=== PATIENT | female | born 1940 | race Caucasian/White ===

== ENCOUNTER 2018-07-08 17:53 | Outpatient (REF) | payer MEDICARE, SELFPAY ==
[2018-07-08 22:25] LABS: TSH (W/Ref FT4) 2.48 uIU/mL (0.358-3.74)
[2018-07-08 22:38] LABS: Vitamin B12 > 2000 pg/mL (193-986)
[2018-07-11 14:28] LABS: Syphilis Serology (RPR) Negative (Negative)
== END 2018-07-08 18:13 ==
LOC: NCHCN 17:53
PROVIDERS: PCP Family Medicine; Visit Provider Family Medicine
DX: G31.84 Mild cognitive impairment of uncertain or unknown etiology (principal); I10 Essential (primary) hypertension
CPT/HCPCS: 82607; 84443; 86592

== ENCOUNTER 2019-02-07 15:41 | Outpatient (REF) | payer MEDICARE, SELFPAY ==
[2019-02-07 21:32] LABS: Hemoglobin A1C 6.4 % (4.5-6.2)
[2019-02-07 21:42] LABS: TSH (W/Ref FT4) 3.78 uIU/mL (0.36-3.74)
[2019-02-07 22:01] LABS: FREE T4 0.95 ng/dL (0.76-1.46)
== END 2019-02-07 16:01 ==
LOC: NCHCN 15:41
PROVIDERS: PCP Family Medicine; Visit Provider Family Medicine
DX: R73.03 Prediabetes (principal); R63.5 Abnormal weight gain
CPT/HCPCS: 83036; 84439; 84443

== ENCOUNTER 2019-04-13 13:13 | Outpatient (REF) | payer MEDICARE, SELFPAY ==
[2019-04-13 22:41] LABS: Anion Gap 8.4 mmol/L (3-11); BUN 19 mg/dL (7-18); CO2 31.6 mmol/L (21.0-32.0); CREATININE 1.11 mg/dL (0.55-1.02); Calcium 9.2 mg/dL (8.5-10.1); Chloride 102 mmol/L (98-107); Estimated GFR 47.42 (mL/min/1.73m2); Glucose 95 mg/dL (70-100); Magnesium 1.5 mg/dL (1.8-2.4); Potassium 3.8 mmol/L (3.5-5.1); Sodium 142 mmol/L (136-145)
== END 2019-04-13 13:33 ==
LOC: NCHCN 13:13
PROVIDERS: PCP Family Medicine; Visit Provider Family Medicine
DX: E87.6 Hypokalemia (principal); E83.42 Hypomagnesemia
CPT/HCPCS: 80048; 83735

== ENCOUNTER 2019-04-27 11:10 | Outpatient (REF) | payer MEDICARE, SELFPAY | END 2019-04-27 11:30 | LOC: NCHCN 11:10 | PROVIDERS: PCP Family Medicine; Visit Provider Family Medicine | DX: R82.90 Unspecified abnormal findings in urine (principal) | CPT/HCPCS: 87086 ==

== ENCOUNTER 2019-06-26 14:13 | Outpatient (REF) | payer MEDICARE, SELFPAY ==
[2019-06-26 21:43] LABS: Abs Immature Grans 0.02 k/cumm (0.0-0.09); Absolute Basophil Count 0.04 k/cumm (0.0-0.2); Absolute Eosinophil Count 0.27 k/cumm (0.0-0.7); Absolute Monocyte Count 0.87 k/cumm (0.11-0.7); Absolute Neutrophil Count 3.99 k/cumm (1.2-6.7); Basophils % 0.6; HCT 43.1 % (36.0-46.0); HGB 13.9 g/dL (12.0-15.5); Immature Grans % 0.3 %; Lymphocytes % 23.6; Mean Corp. HGB Concentration 32.3 g/dL (32.0-36.0); Mean Corpuscular Hemoglobin 28.7 pg (27.0-33.0); Mean Platelet Volume 11.5 fL (8.0-11.0); Monocytes % 12.8; Neutrophils % 58.7; Platelet Count 208 x1000/uL (130-400); RBC 4.84 m/cumm (4.00-5.20); RBC Distribution Width 15.9 % (11.7-14.6); White Blood Cell Count 6.79 k/cumm (4.4-10.8)
[2019-06-26 22:13] LABS: ALT 20 U/L (14-59); AST 22 U/L (15-37); Albumin 3.9 g/dL (3.4-5.0); Alkaline Phosphatase 104 U/L (46-116); Anion Gap 9.2 mmol/L (3-11); BUN 12 mg/dL (7-18); Bilirubin, Total 0.7 mg/dL (0.2-1.0); CO2 32.8 mmol/L (21.0-32.0); CREATININE 1.02 mg/dL (0.55-1.02); Calcium 9.5 mg/dL (8.5-10.1); Chloride 98 mmol/L (98-107); Estimated GFR 52.28 (mL/min/1.73m2); Glucose 101 mg/dL (74-106); Magnesium 1.4 mg/dL (1.8-2.4); Potassium 3.7 mmol/L (3.5-5.1); Sodium 140 mmol/L (136-145); Total Protein 7.4 g/dL (6.4-8.2)
== END 2019-06-26 14:33 ==
LOC: NCHCN 14:13
PROVIDERS: PCP Family Medicine; Visit Provider Nurse Practitioner Family
DX: E83.42 Hypomagnesemia (principal); R19.7 Diarrhea, unspecified
CPT/HCPCS: 80053; 83735; 85025

== ENCOUNTER 2019-07-11 21:45 | Outpatient (REF) | payer MEDICARE, SELFPAY ==
[2019-07-11 22:19] LABS: Calculated LDL 108 mg/dL (<100); Cholesterol 181 mg/dL (<200); HDL Cholesterol 59 mg/dL (40-60); Magnesium 1.2 mg/dL (1.8-2.4); Triglyceride 71 mg/dL (<150)
== END 2019-07-11 22:05 ==
LOC: NCHCN 21:45
PROVIDERS: PCP Family Medicine; Visit Provider Family Medicine
DX: R73.03 Prediabetes (principal); I10 Essential (primary) hypertension; E83.42 Hypomagnesemia
CPT/HCPCS: 80061; 83735

== ENCOUNTER 2019-09-08 14:21 | Outpatient (REF) | payer MEDICARE, SELFPAY ==
[2019-09-08 20:20] LABS: Hemoglobin A1C 6.3 % (3.8-5.6); Magnesium 1.7 mg/dL (1.8-2.4)
== END 2019-09-08 14:41 ==
LOC: NCHCN 14:21
PROVIDERS: PCP Family Medicine; Visit Provider Family Medicine
DX: R73.03 Prediabetes (principal); E83.42 Hypomagnesemia
CPT/HCPCS: 83036; 83735

== ENCOUNTER 2019-09-26 10:07 | Outpatient (REF) | payer MEDICARE, SELFPAY ==
[2019-09-26 20:42] LABS: Anion Gap 6.7 mmol/L (3-11); BUN 18 mg/dL (7-18); CO2 34.3 mmol/L (21.0-32.0); CREATININE 1.02 mg/dL (0.55-1.02); Calcium 9.1 mg/dL (8.5-10.1); Chloride 92 mmol/L (98-107); Estimated GFR 52.14 (mL/min/1.73m2); Glucose 166 mg/dL (74-106); Potassium 3.8 mmol/L (3.5-5.1); Sodium 133 mmol/L (136-145)
== END 2019-09-26 10:27 ==
LOC: NCHCN 10:07
PROVIDERS: PCP Family Medicine; Visit Provider Family Medicine
DX: E87.4 Mixed disorder of acid-base balance (principal)
CPT/HCPCS: 80048

== ENCOUNTER 2020-01-17 19:39 | Outpatient (REF) | payer MEDICARE, SELFPAY ==
[2020-01-17 19:52] LABS: BUN 17 mg/dL (7-18); Potassium 4.2 mmol/L (3.5-5.1)
[2020-01-17 21:12] LABS: Anion Gap 9.1 mmol/L (3-11); CO2 25.9 mmol/L (21.0-32.0); CREATININE 1.27 mg/dL (0.55-1.02); Chloride 95 mmol/L (98-107); Estimated GFR 40.49 (mL/min/1.73m2); Glucose 289 mg/dL (74-106); Sodium 130 mmol/L (136-145)
== END 2020-01-17 19:59 ==
LOC: NCHCN 19:39
PROVIDERS: PCP Family Medicine; Visit Provider Nurse Practitioner Family
DX: R63.1 Polydipsia (principal); E11.9 Type 2 diabetes mellitus without complications
CPT/HCPCS: 80048

== ENCOUNTER 2020-01-18 15:17 | Outpatient (REF) | payer MEDICARE, SELFPAY ==
[2020-01-18 21:09] LABS: Anion Gap 12.9 mmol/L (3-11); BUN 17 mg/dL (7-18); CO2 23.1 mmol/L (21.0-32.0); CREATININE 1.48 mg/dL (0.55-1.02); Calcium 8.8 mg/dL (8.5-10.1); Chloride 94 mmol/L (98-107); Estimated GFR 33.93 (mL/min/1.73m2); Glucose 253 mg/dL (74-106); Potassium 4.1 mmol/L (3.5-5.1); Sodium 130 mmol/L (136-145)
== END 2020-01-18 15:37 ==
LOC: NCHCN 15:17
PROVIDERS: PCP Family Medicine; Visit Provider Family Medicine
DX: R19.7 Diarrhea, unspecified (principal)
CPT/HCPCS: 80048; 87077; 87086; 87186

== ENCOUNTER 2020-01-22 14:19 | Outpatient (REF) | payer MEDICARE, SELFPAY ==
[2020-01-22 21:16] LABS: Anion Gap 10.1 mmol/L (3-11); BUN 13 mg/dL (7-18); CO2 25.9 mmol/L (21.0-32.0); Calcium 8.8 mg/dL (8.5-10.1); Chloride 98 mmol/L (98-107); Estimated GFR 39.41 (mL/min/1.73m2); Glucose 165 mg/dL (74-106); Magnesium 1.6 mg/dL (1.8-2.4); Potassium 4.6 mmol/L (3.5-5.1); Sodium 134 mmol/L (136-145)
== END 2020-01-22 14:39 ==
LOC: NCHCN 14:19
PROVIDERS: PCP Family Medicine; Visit Provider Family Medicine
DX: R94.4 Abnormal results of kidney function studies (principal); E83.42 Hypomagnesemia
CPT/HCPCS: 80048; 83735

== ENCOUNTER 2020-01-26 15:55 | Outpatient (REF) | payer MEDICARE, SELFPAY ==
[2020-01-26 22:46] LABS: Anion Gap 7.2 mmol/L (3-11); BUN 11 mg/dL (7-18); CO2 27.8 mmol/L (21.0-32.0); CREATININE 1.17 mg/dL (0.55-1.02); Chloride 99 mmol/L (98-107); Estimated GFR 44.51 (mL/min/1.73m2); Glucose 287 mg/dL (74-106); Potassium 4.4 mmol/L (3.5-5.1); Sodium 134 mmol/L (136-145)
== END 2020-01-26 16:15 ==
LOC: NCHCN 15:55
PROVIDERS: PCP Family Medicine; Visit Provider Family Medicine
DX: E11.9 Type 2 diabetes mellitus without complications (principal); E87.6 Hypokalemia
CPT/HCPCS: 80048

== ENCOUNTER 2020-03-08 19:07 | Outpatient (REF) | payer MEDICARE, OTHER, SELFPAY ==
[2020-03-08 21:39] LABS: Anion Gap 7.3 mmol/L (3-11); BUN 15 mg/dL (7-18); CO2 30.7 mmol/L (21.0-32.0); CREATININE 1.26 mg/dL (0.55-1.02); Calcium 9.4 mg/dL (8.5-10.1); Chloride 100 mmol/L (98-107); Estimated GFR 40.86 (mL/min/1.73m2); Glucose 202 mg/dL (74-106); Potassium 4.2 mmol/L (3.5-5.1); Sodium 138 mmol/L (136-145)
[2020-03-08 21:55] LABS: Hemoglobin A1C 9.4 % (<5.7)
== END 2020-03-08 19:27 ==
LOC: NCHCN 19:07
PROVIDERS: PCP Family Medicine; Visit Provider Family Medicine
DX: E11.9 Type 2 diabetes mellitus without complications (principal); I10 Essential (primary) hypertension; E83.42 Hypomagnesemia; E87.6 Hypokalemia
CPT/HCPCS: 80048; 83036

== ENCOUNTER 2020-09-10 12:52 | Outpatient (REF) | payer MEDICARE, OTHER, SELFPAY ==
[2020-09-10 13:59] LABS: COMMENT (LAB VIEW ONLY) 47.35 mg/dL
[2020-09-10 14:03] LABS: Microalb ug/mg Crea 611.2 ug/mg Cr
== END 2020-09-10 12:53 | disposition home or self-care (01) ==
LOC: NCHCN 12:52
PROVIDERS: PCP Family Medicine; Visit Provider Family Medicine
DX: E11.9 Type 2 diabetes mellitus without complications (principal)
CPT/HCPCS: 82043; 82570

== ENCOUNTER 2020-10-21 15:25 | Outpatient (REF) | payer MEDICARE, OTHER, SELFPAY ==
[2020-10-21 21:10] LABS: Anion Gap 8.9 mmol/L (3-11); BUN 17 mg/dL (7-18); CO2 30.1 mmol/L (21.0-32.0); CREATININE 0.8 mg/dL (0.55-1.02); Calcium 8.9 mg/dL (8.5-10.1); Chloride 103 mmol/L (98-107); Glucose 77 mg/dL (74-106); Potassium 4.2 mmol/L (3.5-5.1); Sodium 142 mmol/L (136-145)
== END 2020-10-21 15:26 | disposition home or self-care (01) ==
LOC: NCHCN 15:25
PROVIDERS: PCP Family Medicine; Visit Provider Nurse Practitioner Community Health
DX: N18.30 Chronic kidney disease, stage 3 unspecified (principal)
CPT/HCPCS: 80048

== ENCOUNTER 2020-10-25 14:26 | Outpatient (REF) | payer MEDICARE, OTHER, SELFPAY ==
[2020-10-25 18:43] LABS: Anion Gap 6.3 mmol/L (3-11); BUN 16 mg/dL (7-18); CO2 32.7 mmol/L (21.0-32.0); Calcium 10.3 mg/dL (8.5-10.1); Chloride 98 mmol/L (98-107); Estimated GFR 53.21 (mL/min/1.73m2); Glucose 143 mg/dL (74-106); Potassium 4.4 mmol/L (3.5-5.1); Sodium 137 mmol/L (136-145)
== END 2020-10-25 14:27 | disposition home or self-care (01) ==
LOC: NCHCN 14:26
PROVIDERS: Family Medicine; PCP Family Medicine; Visit Provider Internal Medicine Pulmonary Disease
DX: I10 Essential (primary) hypertension (principal)
CPT/HCPCS: 80048

== ENCOUNTER 2021-06-24 01:31 | Outpatient (CLI) | payer OTHER, SELFPAY ==
[2021-06-25 15:06] LABS: COVID-19 RT-PCR UVMMC Result Negative (Negative)
== END 2021-06-24 01:32 | disposition home or self-care (01) ==
LOC: LBO 01:31
PROVIDERS: PCP Family Medicine; Visit Provider Internal Medicine Rheumatology
DX: Z20.822 Contact with and (suspected) exposure to COVID-19 (principal); Z01.812 Encounter for preprocedural laboratory examination
CPT/HCPCS: U0003

== ENCOUNTER 2021-06-26 01:40 | Outpatient (RCR) | payer OTHER, SELFPAY | END 2021-07-07 23:59 | disposition home or self-care (01) | LOC: INF 01:40 | PROVIDERS: PCP Family Medicine; Visit Provider Family Medicine | DX: D84.821 Immunodeficiency due to drugs; M05.9 Rheumatoid arthritis with rheumatoid factor, unspecified; Z79.899 Other long term (current) drug therapy | CPT/HCPCS: 96372; Q0220 ==

== ENCOUNTER 2021-08-19 19:44 | Outpatient (REF) | payer OTHER, SELFPAY ==
[2021-08-19 14:47] LABS: TSH (W/Ref FT4) 2.16 uIU/mL (0.36-3.74)
[2021-08-19 14:59] LABS: COMMENT (LAB VIEW ONLY) 58.29 mg/dL
[2021-08-19 15:06] LABS: Microalb ug/mg Crea 120.4 ug/mg Cr
== END 2021-08-19 19:45 | disposition home or self-care (01) ==
LOC: NCHCN 19:44
PROVIDERS: PCP Family Medicine; Visit Provider Family Medicine
DX: R53.83 Other fatigue (principal); R80.9 Proteinuria, unspecified
CPT/HCPCS: 82043; 82570; 84443

== ENCOUNTER 2022-06-15 16:04 | Outpatient (REF) | payer OTHER, SELFPAY ==
[2022-06-15 21:17] LABS: Anion Gap 6.6 mmol/L (3-11); BUN 17 mg/dL (7-18); CO2 30.4 mmol/L (21.0-32.0); Calcium 9.5 mg/dL (8.5-10.1); Chloride 100 mmol/L (98-107); Estimated GFR 56.25 (mL/min/1.73m2); Glucose 108 mg/dL (74-106); Potassium 4.2 mmol/L (3.5-5.1); Sodium 137 mmol/L (136-145)
== END 2022-06-15 16:05 | disposition home or self-care (01) ==
LOC: NCHCN 16:04
PROVIDERS: PCP Family Medicine; Visit Provider Nurse Practitioner Family
DX: N18.30 Chronic kidney disease, stage 3 unspecified (principal)
CPT/HCPCS: 80048

== ENCOUNTER 2022-07-30 17:36 | Outpatient (REF) | payer OTHER, SELFPAY ==
[2022-07-30 21:54] LABS: Microalb ug/mg Crea 12.8 ug/mg Cr
== END 2022-07-30 17:37 | disposition home or self-care (01) ==
LOC: NCHCN 17:36
PROVIDERS: PCP Family Medicine; Visit Provider Family Medicine
DX: E11.9 Type 2 diabetes mellitus without complications (principal)
CPT/HCPCS: 82043; 82570

== ENCOUNTER 2023-06-15 15:29 | Outpatient (REF) | payer OTHER, SELFPAY ==
[2023-06-15 14:42] LABS: Anion Gap 7.1 mmol/L (3-11); BUN 20 mg/dL (7-18); CO2 30.9 mmol/L (21.0-32.0); CREATININE 1.2 mg/dL (0.55-1.02); Calcium 10.3 mg/dL (8.5-10.1); Chloride 102 mmol/L (98-107); Estimated GFR 44.91 (mL/min/1.73m2); Glucose 123 mg/dL (74-106); Potassium 4.1 mmol/L (3.5-5.1); Sodium 140 mmol/L (136-145)
[2023-06-15 14:49] LABS: Hemoglobin A1C 6.3 % (<5.7)
== END 2023-06-15 15:30 | disposition home or self-care (01) ==
LOC: NCHCN 15:29
PROVIDERS: PCP Family Medicine; Visit Provider Family Medicine
DX: E11.9 Type 2 diabetes mellitus without complications (principal)
CPT/HCPCS: 80048; 83036

== ENCOUNTER 2024-03-01 16:20 | Outpatient (REF) | payer OTHER, SELFPAY ==
[2024-03-01 15:05] LABS: Microalb ug/mg Crea 14.5 ug/mg Cr
== END 2024-03-01 16:21 | disposition home or self-care (01) ==
LOC: NCHCN 16:20
PROVIDERS: PCP Family Medicine; Visit Provider Family Medicine
DX: E11.9 Type 2 diabetes mellitus without complications (principal)
CPT/HCPCS: 82043; 82570

== ENCOUNTER 2024-11-14 18:06 | Outpatient (REF) | payer OTHER, SELFPAY | END 2024-11-14 18:07 | disposition home or self-care (01) | LOC: NCHCN 18:06 | PROVIDERS: PCP Family Medicine; Visit Provider Family Medicine | DX: R39.9 Unspecified symptoms and signs involving the genitourinary system (principal); R82.89 Other abnormal findings on cytological and histological examination of urine | CPT/HCPCS: 87086 ==

== ENCOUNTER 2025-02-02 18:12 | Outpatient (REF) | payer OTHER, SELFPAY | END 2025-02-02 18:13 | disposition home or self-care (01) | LOC: NCHCN 18:12 | PROVIDERS: PCP Family Medicine; Visit Provider Internal Medicine | DX: R30.0 Dysuria (principal); R82.89 Other abnormal findings on cytological and histological examination of urine | CPT/HCPCS: 87077; 87086; 87186 ==

== ENCOUNTER 2025-02-15 20:51 | Outpatient (REF) | payer OTHER, SELFPAY ==
[2025-02-15 21:42] LABS: COMMENT (LAB VIEW ONLY) 97.59 mg/dL
[2025-02-15 21:48] LABS: Microalb ug/mg Crea 135.4 ug/mg Cr
== END 2025-02-15 20:52 | disposition home or self-care (01) ==
LOC: NCHCN 20:51
PROVIDERS: PCP Family Medicine; Visit Provider Family Medicine
DX: E11.9 Type 2 diabetes mellitus without complications (principal)
CPT/HCPCS: 82043; 82570

== ENCOUNTER 2025-03-30 21:03 | Outpatient (REF) | payer OTHER, SELFPAY | END 2025-03-30 21:04 | disposition home or self-care (01) | LOC: NCHCN 21:03 | PROVIDERS: PCP Family Medicine; Visit Provider Physician Assistant | DX: R30.0 Dysuria (principal) | CPT/HCPCS: 87086 ==